=== PATIENT | female | born 1990 | race African-American/Black ===

== ENCOUNTER 2017-01-02 22:04 | Emergency (ER) | payer SELFPAY ==
[~2017-01-02] VITALS: Ht 165.1 cm; Wt 154.2 kg
[2017-01-02 22:20] VITALS: BP 157/78
[2017-01-02] MEDS ORDERED: LIDOCAINE 1% / SOD BICARB 8.4% 20 ML VIAL. IJ ONE (22:30)
[2017-01-02] MEDS ORDERED: LIDOCAINE/EPI/TETRACAINE TOPICAL GEL 3 ML. TP ONE (22:45)
[2017-01-03] MEDS ORDERED: ACET-704 PO (00:41)
--- NOTE | 2017-01-03 00:41 | PHYS DOC ---
Past Medical History Past Medical History: No Pertinent History, Other Additional Past Medical Histor: morbid obesity Past Surgical History: No Surgical History Alcohol Use: None Drug Use: None Adult General Chief Complaint Chief Complaint: LACERATION/AVULSION HPI HPI Patient is a 26 year old female who presents with multiple right knee lacerations after falling on her knee from a bed and landing on a glass that broke. Review of Systems Review of Systems Constitutional: Denies fever or chills [] Eyes: Denies change in visual acuity, redness, or eye pain [] HENT: Denies nasal congestion or sore throat [] Respiratory: Denies cough or shortness of breath [] Cardiovascular: No additional information not addressed in HPI [] GI: Denies abdominal pain, nausea, vomiting, bloody stools or diarrhea [] : Denies dysuria or hematuria [] Musculoskeletal: Denies back pain or joint pain [] Integument: Right knee laceration Neurologic: Denies headache, focal weakness or sensory changes [] Endocrine: Denies polyuria or polydipsia [] Current Medications Current Medications Current Medications Medications (Trade) Dose Ordered Sig/Iliana Start Time Stop Time Status Last Admin Dose Admin Lidocaine/ Epinephrine (Let Topical) 3 ml 1X ONCE 01/02/17 22:45 01/02/17 22:46 DC Lidocaine/Sodium Bicarbonate (Buffered Lidocaine 1%) 20 ml 1X ONCE 01/02/17 22:30 01/02/17 22:31 DC 01/02/17 23:19 20 ML Allergies Allergies Allergies Coded Allergies Type Severity Reaction Last Updated Verified No Known Drug Allergies 03/06/16 No Physical Exam Physical Exam Constitutional: Well developed, well nourished, no acute distress, non-toxic appearance. [] HENT: Normocephalic, atraumatic, bilateral external ears normal, oropharynx moist, no oral exudates, nose normal. [] Skin: Right knee with no obvious foreign object, multiple lacerations noted on the right knee. 3 cm laceration, 5 cm laceration, 2 cm laceration, 2 cm laceration. Neurovascular exam intact to the right knee. Back: No tenderness, no CVA tenderness. [] Extremities: No tenderness, no cyanosis, no clubbing, ROM intact, no edema. [] Neurologic: Alert and oriented X 3, normal motor function, normal sensory function, no focal deficits noted. [] Psychologic: Affect normal, judgement normal, mood normal. [] Current Patient Data Vital Signs Vital Signs Date Time Temp Pulse Resp B/P (MAP) Pulse Ox O2 Delivery O2 Flow Rate FiO2 01/02/17 22:20 99.0 98 20 98 Room Air 99.0 EKG EKG [] Radiology/Procedures Radiology/Procedures Indication: [] Multiple lacerations to the right knee Procedure: The patient was placed in the appropriate position and anesthesia around the lacerations was 1% buffered lidocaine. The area was then explored for foreign objects, a couple tiny pieces of glasses were removed, the laceration was cleaned with 250 ML of normal saline and Betadine. 3 cm laceration was closed with 8 interrupted sutures using 5. 0 Prolene, 5 cm laceration was closed with 10 interrupted sutures using 5. 0 Prolene, 2 cm laceration was closed with 5 interrupted sutures using 5. 0 Prolene, 2 cm laceration was closed with 7 interrupted sutures using 5. 0 Prolene. Total sutures 30. Area was covered with gauze and nonstick dressing. Course & Med Decision Making Course & Med Decision Making Pertinent Labs and Imaging studies reviewed. (See chart for details) Patient has multiple lacerations to the right knee after falling on a piece of glass that broke. The lacerations were cleaned and closed as noted in procedures. Right knee x-rays interpreted by was noted for possible glass pieces otherwise no acute findings. Patient provided follow-up instructions. Dragon Disclaimer Dragon Disclaimer This electronic medical record was generated, in whole or in part, using a voice recognition dictation system. Departure Departure Impression: Primary Impression: Laceration of right knee Additional Impression: Fall from bed Disposition: 01 HOME, SELF-CARE Condition: STABLE Referrals: NO PCP (PCP) Follow-up with the emergency room or your primary care doctor in 7-10 days for stitches removal Patient Instructions: Laceration Care, Adult Additional Instructions: You were seen for right knee laceration, keep the areas clean and dry. Apply Neosporin to the area once or twice a day. Come back to the ED or follow-up with your own doctor in 7-10 days for stitches removal. Monitor the area for signs and symptoms of infection including but not limited to increased redness warmth or odor or yellow drainage and return to the ED if they occur or see your own doctor. Scripts Acetaminophen With Codeine (TYLENOL WITH CODEINE #3 TABLET) 1 Each Tablet 1 TAB PO PRN Q6HRS Y for PAIN, #30 TAB Prov: SB DEUTSCH APRN 01/03/17 Problem Qualifiers Primary Impression: Laceration of right knee Encounter type: initial encounter Qualified Codes: S81.011A - Laceration without foreign body, right knee, initial encounter Additional Impression: Fall from bed Encounter type: initial encounter Qualified Codes: W06.XXXA - Fall from bed , initial encounter SB DEUTSCH [employer] EDUCATION TEACHER Jan 03, 2017 00:41
--- NOTE | 2017-01-03 08:13 | RAD ---
Indication pain. Laceration. AP oblique and lateral views of the right knee were obtained. No acute bony finding is seen. There is perhaps some debris in the soft tissues of the knee best demonstrated on the lateral view.
== END 2017-01-03 00:44 | disposition home or self-care (01) ==
LOC: ER 22:04
DX: S81.021A Laceration with foreign body, right knee, initial encounter (principal); E66.01 Morbid (severe) obesity due to excess calories; Z68.43 Body mass index [BMI] 50.0-59.9, adult; W06.XXXA Fall from bed, initial encounter; W25.XXXA Contact with sharp glass, initial encounter; Y93.89 Activity, other specified; Y99.8 Other external cause status; Y92.89 Other specified places as the place of occurrence of the external cause
CPT/HCPCS: 12034; 73564; 99284-25

== ENCOUNTER 2017-01-14 16:32 | Emergency (ER) | payer SELFPAY ==
[~2017-01-14] VITALS: Ht 165.1 cm; Wt 154.2 kg
[~2017-01-14 16:32] MED LIST: ACET-704 PO
[2017-01-14 16:40] VITALS: BP 134/72
--- NOTE | 2017-01-14 16:56 | PHYS DOC ---
Past Medical History Past Medical History: No Pertinent History, Other Additional Past Medical Histor: morbid obesity Past Surgical History: No Surgical History Alcohol Use: None Drug Use: None Adult General Chief Complaint Chief Complaint: SUTURE/STAPLE REMOVAL [facility] Patient is a 26 year old female presents to the emergency department with a history of sutures placed on 02 January. She states that she had fallen into an ashtray. She states that the areas has had no redness warmth tenderness or any drainage or discharge coming from the site. States her tetanus immunization was up-to-date. She denies any fever, chills or any nausea vomiting. Patient is here for suture removal. Review of Systems Review of Systems Constitutional: Denies fever or chills [] Eyes: Denies change in visual acuity, redness, or eye pain [] HENT: Denies nasal congestion or sore throat [] Respiratory: Denies cough or shortness of breath [] Cardiovascular: No additional information not addressed in [facility] [] GI: Denies abdominal pain, nausea, vomiting, bloody stools or diarrhea [] : Denies dysuria or hematuria [] Musculoskeletal: Denies back pain or joint pain [] Integument: Denies rash or skin lesions. Patient states she is here for suture removal. Neurologic: Denies headache, focal weakness or sensory changes [] Endocrine: Denies polyuria or polydipsia [] Allergies Allergies Allergies Coded Allergies Type Severity Reaction Last Updated Verified No Known Drug Allergies 03/06/16 No Physical Exam Physical Exam Constitutional: Well developed, well nourished, no acute distress, non-toxic appearance. [] HENT: Normocephalic, atraumatic, bilateral external ears normal, oropharynx moist, no oral exudates, nose normal. [] Eyes: PERRLA, EOMI, conjunctiva normal, no discharge. [] Neck: Normal range of motion, no tenderness, supple, no stridor. [] Cardiovascular: Patient pink warm and dry Lungs & Thorax: No respiratory distress noted Skin: Warm, dry, no erythema, no rash. Patient with sutures intact with no drainage or discharge from the sites. Edges appear to be approximated well. Back: No tenderness Extremities: No tenderness, no cyanosis, no clubbing, ROM intact, no edema. [] Neurologic: Alert and oriented X 3, normal motor function, normal sensory function, no focal deficits noted. [] Psychologic: Affect normal, judgement normal, mood normal. [] EKG EKG [] Radiology/Procedures Radiology/Procedures [] Course & Med Decision Making Course & Med Decision Making Pertinent Labs and Imaging studies reviewed. (See chart for details) 30 interrupted sutures removed from the right knee area. Provided patient with discharge instructions, treatment regimens and follow-up recommendations. Signs symptoms to return back to emergency department as been provided. Patient agrees with discharge instructions treatment regimens and follow-up recommendations. [] Dragon Disclaimer Dragon Disclaimer This electronic medical record was generated, in whole or in part, using a voice recognition dictation system. Departure Departure Impression: Primary Impression: Visit for suture removal Disposition: HOME, SELF-CARE Condition: STABLE Referrals: NO PCP (PCP) Patient Instructions: Suture Removal-Brief Additional Instructions: Keep the area clean and dry. Clean the site twice daily with soap and water and apply antibiotic ointment to the area. Tylenol or ibuprofen for pain and discomfort. Watch for signs and symptoms of infection: Redness, warmth, tenderness or any yellow/greenish drainage of a come from the site physician occur follow-up to primary care physician immediately. Return to emergency department sign symptoms become worse. PATRICIA SANDERS APRN Jan 14, 2017 16:56
== END 2017-01-14 17:02 | disposition home or self-care (01) ==
LOC: ER 16:32
DX: S81.011D Laceration without foreign body, right knee, subsequent encounter (principal); X58.XXXD Exposure to other specified factors, subsequent encounter; Y92.89 Other specified places as the place of occurrence of the external cause; Y99.8 Other external cause status
CPT/HCPCS: 99281

== ENCOUNTER 2017-05-16 15:54 | Emergency (ER) | payer OTHER ==
[~2017-05-16] VITALS: Ht 165.1 cm; Wt 146.5 kg
[2017-05-16 16:12] VITALS: BP 154/79
[2017-05-16] MEDS ORDERED: FAMOTIDINE 20 MG TABLET. PO ONE (16:15)
[2017-05-16] MEDS ORDERED: LIDO:MAALOX:DONNATAL 1:1:1 15 ML SINGLE DOSE SWSW ONE (16:15)
--- NOTE | 2017-05-16 16:21 | PHYS DOC ---
Past Medical History Past Medical History: No Pertinent History, Other Additional Past Medical Histor: morbid obesity Past Surgical History: No Surgical History Alcohol Use: None Drug Use: None Adult General Chief Complaint Chief Complaint: COUGH HPI HPI Patient is a 26 year old female presents the ED complaining of pain to upper chest. States the pain is worse after she eats. Patient states she has a history of GERD. Describes the pain as burning. Rates the pain as 6 out of 10. Patient states she also has a mild cough and has been burping a lot. Denies fever, flulike symptoms, weakness, shortness of breath, dizziness, nausea/ vomiting, headache, abdominal pain or dysuria. Review of Systems Review of Systems Constitutional: Denies fever or chills [] Eyes: Denies change in visual acuity, redness, or eye pain [] HENT: Denies nasal congestion or sore throat [] Respiratory: Denies cough or shortness of breath [] Cardiovascular: No additional information not addressed in HPI [] GI: Denies abdominal pain, nausea, vomiting, bloody stools or diarrhea [] : Denies dysuria or hematuria [] Musculoskeletal: Denies back pain or joint pain [] Integument: Denies rash or skin lesions [] Neurologic: Denies headache, focal weakness or sensory changes [] Endocrine: Denies polyuria or polydipsia [] All other systems were reviewed and found to be within normal limits, except as documented in this note. Current Medications Current Medications Current Medications Medications (Trade) Dose Ordered Sig/Iliana Start Time Stop Time Status Last Admin Dose Admin Famotidine (Pepcid) 20 mg 1X ONCE 05/16/17 16:15 05/16/17 16:16 DC 05/16/17 16:33 20 MG Multi-Ingredient Mouthwash/Gargle (Gi Cocktail Single Dose) 15 ml 1X ONCE 05/16/17 16:15 05/16/17 16:16 DC 05/16/17 16:33 15 ML Allergies Allergies Allergies Coded Allergies Type Severity Reaction Last Updated Verified No Known Drug Allergies 03/06/16 No Physical Exam Physical Exam Constitutional: Well developed, well nourished, no acute distress, non-toxic appearance. [] HENT: Normocephalic, atraumatic, bilateral external ears normal, oropharynx moist, no oral exudates, nose normal. [] Eyes: PERRLA, EOMI, conjunctiva normal, no discharge. [] Neck: Normal range of motion, no tenderness, supple, no stridor. [] Cardiovascular:Heart rate regular rhythm, no murmur [] Lungs & Thorax: Bilateral breath sounds clear to auscultation [] Abdomen: Bowel sounds normal, soft, no tenderness, no masses, no pulsatile masses. [] Skin: Warm, dry, no erythema, no rash. [] Back: No tenderness, no CVA tenderness. [] Extremities: No tenderness, no cyanosis, no clubbing, ROM intact, no edema. [] Neurologic: Alert and oriented X 3, normal motor function, normal sensory function, no focal deficits noted. [] Psychologic: Affect normal, judgement normal, mood normal. [] Current Patient Data Vital Signs Vital Signs Date Time Temp Pulse Resp B/P (MAP) Pulse Ox O2 Delivery O2 Flow Rate FiO2 05/16/17 16:12 98.1 95 18 99 Room Air 98.1 Lab Values Laboratory Tests Test 05/16/17 16:30 05/16/17 16:31 Urine Collection Type Unknown Urine Color Yellow Urine Clarity Cloudy Urine pH 8.5 Urine Specific [place] 1.020 Urine Protein Negative mg/dL (NEG-TRACE) Urine Glucose (UA) Negative mg/dL (NEG) Urine Ketones (Stick) Negative mg/dL (NEG) Urine Blood Negative (NEG) Urine Nitrite Negative (NEG) Urine Bilirubin Negative (NEG) Urine Urobilinogen Dipstick 1.0 mg/dL (0.2 mg/dL) Urine Leukocyte Esterase Negative (NEG) Urine RBC 1-2 /HPF (0-2) Urine WBC 1-4 /HPF (0-4) Urine Squamous Epithelial Cells Mod /LPF Urine Bacteria Few /HPF (0-FEW) Urine Mucus Slight /LPF POC Urine HCG, Qualitative Hcg negative (Negative) EKG EKG [] Radiology/Procedures Radiology/Procedures PROCEDURE: CHEST PA & LATERAL Chest, 2 views, 05/16/2017: History: Cough, chest pain The heart size and pulmonary vascularity are normal. The lungs are clear. There is no evidence of pleural fluid. IMPRESSION: No acute cardiopulmonary abnormality is detected. [] Course & Med Decision Making Course & Med Decision Making Pertinent Labs and Imaging studies reviewed. (See chart for details) [] Discussed imaging findings with patient. Patient's pain resolved with GI cocktail and Pepcid in ED. Symptoms seem related to patient's GERD. Will prescribe Pepcid outpatient. Discussed follow-up with PCP/GI this week. Provided contact information/education. Discussed reasons to return to the ED. Patient understands and agrees with plan. Dragon Disclaimer Dragon Disclaimer This electronic medical record was generated, in whole or in part, using a voice recognition dictation system. Departure Departure Impression: Primary Impression: GERD (gastroesophageal reflux disease) Disposition: 01 HOME, SELF-CARE Condition: IMPROVED Referrals: NO PCP (PCP) ANNE DALLAS MD Patient Instructions: Diet for Gastroesophageal Reflux Disease, Adult, Gastroesophageal Reflux Disease, Adult Scripts Famotidine (PEPCID) 20 Mg Tablet 20 MG PO BID, #14 TAB Prov: KANG DARNELL 05/16/17 KANG DARNELL May 16, 2017 16:21
[2017-05-16 16:39] LABS: BILIRUBIN,URINE NEGATIVE (NEG); GLUCOSE,URINE NEGATIVE (NEG); NITRITE,URINE NEGATIVE (NEG); PH,URINE 8.5; PROTEIN,URINE NEGATIVE (NEG-TRACE)
[2017-05-16 16:59] LABS: BACTERIA,URINE FEW /HPF (0-FEW); SQUAMOUS EPITHELIAL CELL,UR MOD /LPF
--- NOTE | 2017-05-16 17:20 | RAD ---
Chest, 2 views, 05/16/2017: History: Cough, chest pain The heart size and pulmonary vascularity are normal. The lungs are clear. There is no evidence of pleural fluid. IMPRESSION: No acute cardiopulmonary abnormality is detected.
[2017-05-16] MEDS ORDERED: FAMO-63 PO (17:25)
== END 2017-05-16 17:37 | disposition home or self-care (01) ==
LOC: ER 15:54
DX: K21.9 Gastro-esophageal reflux disease without esophagitis (principal); R05 Cough; E66.01 Morbid (severe) obesity due to excess calories; Z68.43 Body mass index [BMI] 50.0-59.9, adult
CPT/HCPCS: 71020; 81001; 81025; 99285-25

== ENCOUNTER 2018-11-29 17:15 | Emergency (ER) | payer SELFPAY ==
[~2018-11-29] VITALS: Ht 165.1 cm; Wt 127.0 kg
[~2018-11-29 17:15] MED LIST changes: +FAMO-63 PO
[2018-11-29] MEDS ORDERED: CYCLOBENZAPRINE 10 MG TABLET. PO ONE (17:30)
--- NOTE | 2018-11-29 17:37 | PHYS DOC ---
Past Medical History Past Medical History: GERD, Other Additional Past Medical Histor: morbid obesity (MAURI HOBBS APRN) Past Surgical History: No Surgical History (MAURI HOBBS APRN) Smoking: Quit Greater Than 1 Year Alcohol Use: Rarely Drug Use: None (MAURI HOBBS APRN) Adult General Chief Complaint Chief Complaint: CHEST PAIN [facility] HPI Patient is a 28 year old female who presents with left-sided chest pain started over 3 days. The patient woke up with the pain. 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 Has not performed any interventions at home for this pain. Rates the pain as 8 out of 10. The pain gets worse when the patient moves her left arm. (MAURI HOBBS APRN) Review of Systems Review of Systems Constitutional: Denies fever or chills [] Eyes: Denies change in visual acuity, redness, or eye pain [] HENT: Denies nasal congestion or sore throat [] Respiratory: Denies cough or shortness of breath [] Cardiovascular: No additional information not addressed in HPI [] GI: Denies abdominal pain, nausea, vomiting, bloody stools or diarrhea [] : Denies dysuria or hematuria [] Musculoskeletal: Denies back pain or joint pain. Tenderness to chest. Integument: Denies rash or skin lesions [] Neurologic: Denies headache, focal weakness or sensory changes [] Endocrine: Denies polyuria or polydipsia [] Complete systems were reviewed and found to be within normal limits, except as documented in this note. (MAURI HOBBS APRN) Current Medications Current Medications Current Medications Medications (Trade) Dose Ordered Sig/Iliana Start Time Stop Time Status Last Admin Dose Admin Cyclobenzaprine HCl (Flexeril) 10 mg 1X ONCE 11/29/18 17:30 11/29/18 17:33 DC 11/29/18 18:04 10 MG Ketorolac Tromethamine (Toradol Im) 30 mg 1X ONCE 11/29/18 17:45 11/29/18 17:46 DC 11/29/18 18:05 30 MG (MAURI TAYLOR DO) Allergies Allergies Allergies Coded Allergies Type Severity Reaction Last Updated Verified No Known Drug Allergies 03/06/16 No (MAURI TAYLOR DO) Physical Exam Physical Exam Constitutional: Well developed, well nourished, no acute distress, non-toxic appearance. [] HENT: Normocephalic, atraumatic, bilateral external ears normal, oropharynx moist, no oral exudates, nose normal. [] Eyes: PERRLA, EOMI, conjunctiva normal, no discharge. [] Neck: Normal range of motion, no tenderness, supple, no stridor. [] Cardiovascular:Heart rate regular rhythm, no murmur; tenderness to left side of chest on palpation. Lungs & Thorax: Bilateral breath sounds clear to auscultation [] Abdomen: Bowel sounds normal, soft, no tenderness, no masses, no pulsatile masses. [] Skin: Warm, dry, no erythema, no rash. [] Back: No tenderness, no CVA tenderness. [] Extremities: No tenderness, no cyanosis, no clubbing, ROM intact, no edema. When patient moves her left arm the left side of chest hurts. Neurologic: Alert and oriented X 3, normal motor function, normal sensory function, no focal deficits noted. [] Psychologic: Affect normal, judgement normal, mood normal. [] (MAURI HOBBS APRN) Current Patient Data Vital Signs Vital Signs Date Time Temp Pulse Resp B/P (MAP) Pulse Ox O2 Delivery O2 Flow Rate FiO2 11/29/18 18:00 54 11 125/65 (85) 97 Room Air 11/29/18 17:25 98.5 98.5 (MAURI TAYLOR DO) Lab Values Laboratory Tests Test 11/29/18 17:57 POC Urine HCG, Qualitative Hcg negative (Negative) (MAURI TAYLOR DO) Lab Values Laboratory Tests Test 11/29/18 17:57 POC Urine HCG, Qualitative Hcg negative (Negative) (MAURI HOBBS APRN) EKG EKG EKG interpreted by Dr. Taylor. No STEMI. Sinus with rate of 72.[] (MAURI HOBBS APRN) Radiology/Procedures Radiology/Procedures Chest x-ray preliminary interpretation by Dr. Taylor No acute findings.[] (MAURI HOBBS APRN) Course & Med Decision Making Course & Med Decision Making Pertinent Labs and Imaging studies reviewed. (See chart for details) Appears to be musculoskeletal in nature. Patient has tenderness on palpation and it hurts when she moves her arm. Patient has been lifting at work. Will obtain EKG. Will get chest x-ray to rule out pneumo. Will give IM Toradol, and Flexeril. (MAURI HOBBS APRN) Dragon Disclaimer Dragon Disclaimer This electronic medical record was generated, in whole or in part, using a voice recognition dictation system. (MAURI HOBBS APRN) Departure Departure Impression: Primary Impression: Chest pain Disposition: HOME, SELF-CARE Condition: STABLE Referrals: NO PCP (PCP) Patient Instructions: Musculoskeletal Pain Additional Instructions: Thank you for visiting [facility]. We appreciate you trusting us with your care. If any additional problems come up don't hesitate to return to visit us. Please follow up with your primary care provider so they can plan additional care if needed and know about the problem that you had. If symptoms worsen come back to the Emergency Department. Any concerning symptoms that start such as shortness of Air, weakness or numbness on one side of the body, running high fevers or any other concerning symptoms return to the ER. Please use Ibuprofen and Tylenol for pain control. Follow the labels instructions as directed. Please fill your medications at any pharmacy and follow the prescription instructions. Scripts Cyclobenzaprine Hcl (CYCLOBENZAPRINE HCL) 10 Mg Tablet 1 TAB PO TID PRN for MUSCLE SPASMS, #30 TAB Prov: MAURI HOBBS APRN 11/29/18 PERC Rule for PE PERC Rule for PE PERC Rule for PE Response (Comments) Value Age > 50: No 0 HR > 100: No 0 Sa02 on room air <95%: No 0 Unilateral leg swelling: No 0 Hemoptysis: No 0 Recent surgery or trauma: No 0 Prior PE or DVT: No 0 Hormone use: No 0 Total 0 Attending Signature Attending Signature I have reviewed the PA/WAREHOUSE RECORD CLERK's note and plan of care. I was available for consultation as needed during the patient's visit in the emergency department. I agree with the clinical impression, plan, and disposition. (MAURI TAYLOR DO) Problem Qualifiers Primary Impression: Chest pain Chest pain type: unspecified Qualified Codes: R07.9 - Chest pain, unspecified MAURI HOBBS APRN Nov 29, 2018 17:37 MAURI TAYLOR DO Nov 30, 2018 03:36
[2018-11-29] MEDS ORDERED: KETOROLAC 60 MG/2 ML VIAL. IM ONE (17:45)
[2018-11-29 18:00] VITALS: BP 125/65
[2018-11-29] MEDS ORDERED: CYCL10TA2 PO (18:27)
--- NOTE | 2018-11-29 21:48 | RAD ---
PORTABLE CHEST 1V History: Chest pain Comparison: May 16, 2017 Findings: Single view of the chest is submitted. There is no infiltrate, pneumothorax, or effusion. The pericardial cardiac silhouette is within normal limits in size. Impression: 1. There is no radiographic evidence of acute cardiopulmonary disease. Electronically signed by: Adams Sorenson MD (11/29/2018 9:46 PM) [facility]
--- NOTE | 2018-11-30 06:00 | EKG ---
[facility] [address] [place] [address] Test Date: 2018-11-29 Test Time: 17:32:36 Pat Name: RAJ MENDEZ Department: Room: Gender: F Litigation Legal Assistant: : [id number] Requested By: MAURI HOBBS Order Number: [id number] Reading MD: Measurements Intervals [place] Rate: 72 P: 22 [place]: 156 QRS: 23 QRSD: 86 T: 24 QT: 374 QTc: 410 Interpretive Statements SINUS RHYTHM INCOMPLETE RIGHT BUNDLE BRANCH BLOCK NON SPECIFIC ST-T ABNORMALITY (ELEVATION) OTHERWISE NORMAL ECG No previous ECG available for comparison
== END 2018-11-29 18:32 | disposition home or self-care (01) ==
LOC: ER 17:15
DX: R07.89 Other chest pain (principal); K21.9 Gastro-esophageal reflux disease without esophagitis; E66.01 Morbid (severe) obesity due to excess calories; Z68.42 Body mass index [BMI] 45.0-49.9, adult; Z87.891 Personal history of nicotine dependence
CPT/HCPCS: 71045; 81025; 93005; 96372; 99284; J1885